=== PATIENT | female | born 1970 | race Caucasian/White ===

== ENCOUNTER 2021-10-03 07:07 | Day surgery (SDC) | payer BC, SELFPAY ==
[~2021-10-03] VITALS: Ht 165.1 cm; Wt 68.0 kg
[~2021-10-03 07:07] MED LIST: CEFAZOLIN SOD 1 GM in D5W 50 ML IV ONE; LORA10TA68 PO
[2021-10-03 07:51] LABS: HCG,QUAL RESULT NEGATIVE (NEGATIVE)
[2021-10-03] MEDS ORDERED: fentaNYL CITRATE 250 MCG/5 ML AMP IV ONE (08:48)
[2021-10-03] MEDS ORDERED: ROCURONIUM BROMIDE 10 MG/ML (ZEMURON) IV ONE (08:48)
[2021-10-03] MEDS ORDERED: NS IRRIG SOLN 1000 ML IR ONE (08:48)
[2021-10-03] MEDS ORDERED: NS 1000 ML IV.SOLN IV ONE (08:48)
[2021-10-03] MEDS ORDERED: SUGAMMADEX SODIUM 200 MG/2 ML VIAL IV ONE (08:48)
[2021-10-03] MEDS ORDERED: ONDANSETRON HCL 4 MG/2 ML VIAL IVP ONE (08:48)
[2021-10-03] MEDS ORDERED: LR 1,000 ML IV.SOLN IV ONE (08:48)
[2021-10-03] MEDS ORDERED: PROPOFOL 200MG/ 20ML VIAL (DIPRIVAN) IV ONE (08:48)
[2021-10-03] MEDS ORDERED: DESFLURANE 15 MIN GAS INH ONE (08:48)
[2021-10-03] MEDS ORDERED: MIDAZOLAM HCL 5 MG/5 ML VIAL IVP ONE (08:48)
[2021-10-03] MEDS ORDERED: BUPIVACAINE /PF 0.25% 30 ML VIAL INJ ONE (08:48)
[2021-10-03] MEDS ORDERED: DEXAMETHASONE SOD PHOSPHATE 4 MG/ML VIAL IVP ONE (08:48)
[2021-10-03] MEDS ORDERED: ACETAMINOPHEN I.V. 1000 MG 100 ML IV ONE (09:05)
[2021-10-03] MEDS ORDERED: HYDROmorphone 1 MG/ML INJ. CARTRIDGE IVP PRN ×2 (09:30)
[2021-10-03] MEDS ORDERED: MEPERIDINE HCL/PF 25 MG/ML DISP.SYRIN IVP PRN (09:30)
[2021-10-03] MEDS ORDERED: METOCLOPRAMIDE HCL 10 MG/2 ML VIAL IVP PRN (09:30)
[2021-10-03] MEDS ORDERED: MIDAZOLAM HCL 2 MG/2 ML VIAL (VERSED) IVP PRN (09:30)
[2021-10-03] MEDS ORDERED: LR 1,000 ML IV SCH (09:30)
[2021-10-03] MEDS ORDERED: IBUPROFEN 800 MG TABLET PO PRN (11:30)
[2021-10-03] MEDS ORDERED: ONDANSETRON HCL 4 MG/2 ML VIAL IM PRN (11:30)
[2021-10-03] MEDS: METOCLOPRAMIDE HCL 10 MG/2 ML VIAL ONE (12:10)
[2021-10-03] MEDS: HYDROmorphone 1 MG/ML INJ. CARTRIDGE ONE (12:20)
[2021-10-03 13:19] VITALS: BP_SYST 118
[2021-10-05] MEDS ORDERED: TRANEXAMIC ACID 1,000 MG in NS 50 ML IV ONE (08:45)
== END 2021-10-03 15:00 | disposition home or self-care (01) ==
LOC: SDS 07:07 → SMU 07:08 → SDS 15:00
PROVIDERS: ATTEND Obstetrics & Gynecology
DX: N92.0 Excessive and frequent menstruation with regular cycle (principal); N83.292 Other ovarian cyst, left side; R93.89 Abnormal findings on diagnostic imaging of other specified body structures; M79.7 Fibromyalgia; E66.01 Morbid (severe) obesity due to excess calories; J45.40 Moderate persistent asthma, uncomplicated; Z88.5 Allergy status to narcotic agent; Z79.899 Other long term (current) drug therapy
CPT/HCPCS: 36415; 58563; 58661; 84703; 86886; 86900; 86901; 88305; C1727; C1782; J0131; J0690; J1100; J1170; J2250; J2405; J2704; J2765; J3010; J3490 ×2; J7030; J7060; J7120